=== PATIENT | male | born 1965 | race Caucasian/White ===

== ENCOUNTER 2016-12-26 11:28 | Emergency (ER) | payer MEDICARE ==
[~2016-12-26] VITALS: Ht 172.7 cm; Wt 95.0 kg
[2016-12-26] MEDS ORDERED: morphine INJ 4 MG/ML 1 ML SYRINGE IV PRN (11:40)
[2016-12-26] MEDS ORDERED: SODIUM CHLORIDE FLUSH 10 ML SYR IV PRN (11:40)
[2016-12-26] MEDS ORDERED: SODIUM CHLORIDE FLUSH 3 ML SYR IV PRN (11:40)
[2016-12-26 11:57] LABS: BASOPHILS % (AUTO) 1 % (0-2); EOSINOPHILS # (AUTO) 0.2 10^3uL; EOSINOPHILS % (AUTO) 2 % (0-4); LYMPHOCYTES # (AUTO) 1.5 X10^3; MEAN CORPUSCULAR HEMOGLOBIN 29.1 PG (26.0-34.0); MEAN CORPUSCULAR HGB CONC 35.1 g/dL (31.0-37.0); MEAN CORPUSCULAR VOLUME 83 FL (80-100); MEAN PLATELET VOLUME 10.5 FL (6.0-9.5); MONOCYTES % (AUTO) 10 % (3-11); NEUTROPHILS # (AUTO) 7.3 X10^3; NEUTROPHILS % (AUTO) 73 % (51-67); PLATELET COUNT 340 10^3uL (150-450); WHITE BLOOD COUNT 10.01 10^3uL (4.0-11.0)
[2016-12-26 12:01] LABS: ALBUMIN 4.6 g/dL (3.4-5.0); ALKALINE PHOSPHATASE 120 U/L (38-126); ANION GAP 15.4 MEQ/L (3-15); BUN/CREATININE RATIO 15 (10-20); CALCULATED IONIZED CALCIUM 3.7 mg/dL (3.8-4.6); CREATINE KINASE 108 U/L (55-170)
--- NOTE | 2016-12-26 12:12 | NUR ---
PATIENT CONTINUES TO DENY ANY DISCOMFORT, SOA, OR NAUSEA. SPO2 REMAINS AT 94% ON ROOM AIR.
--- NOTE | 2016-12-26 12:37 | NUR ---
PATIENT CONTINUES TO DENY DISCOMFORT, SOA, OR NAUSEA. SPO2 REMAINS 94% ON RM AIR.
[2016-12-26] MEDS ORDERED: meTOprolol TARTRATE 25 MG (LOPRESSOR) TABLET PO ONE (13:15)
[2016-12-26 13:43] VITALS: BP 122/84
--- NOTE | 2016-12-26 13:58 | NUR ---
PATIENT REPORT TO Magda CASILLAS, GRAVEL WEIGHER WHO NOW ASSUMES CARE OF PT.
[2016-12-26] MEDS: NITROGLYCERIN SUBLINGUAL 0.4 MG (NITROQUICK) TABLET SL PRN ×2 (22:45→22:47)
== END 2016-12-26 14:05 | disposition short-term general hospital (02) ==
LOC: ED 11:30
DX: R07.9 Chest pain, unspecified (principal); R55 Syncope and collapse
CPT/HCPCS: 36415; 71010; 80053; 82550; 82553; 83880; 84484; 85025; 85610; 85730; 93005; 99285; A9270; J7030; 93010; 96360

== ENCOUNTER → 2016-12-26 | Outpatient (CLI) | payer MEDICARE | LOC: EMS 11:20 | PROVIDERS: ATTEND Internal Medicine | DX: R55 Syncope and collapse (principal); R07.89 Other chest pain ==

== ENCOUNTER 2016-12-31 11:53 | Emergency (ER) | payer MEDICARE ==
[~2016-12-31] VITALS: Ht 172.7 cm; Wt 108.0 kg
[~2016-12-31 11:53] MED LIST changes: -ATN50T PO; -HYDR-33 PO; -SERT100T8 PO
--- OUTSIDE RECORDS SUMMARY | 2016-12-31 11:59 | XMS REPORT | Continuity of Care Document ---
Author Author [facility] Organization [facility] Address Unknown Phone Unavailable Care Team Providers Care Organ Builder Name Role Phone SAW, JESSICA Trinidad MD PCP [phone] Insurance Providers Payer Name Policy Number Subscriber Name Relationship Medicare A And B [id number] Jhoan Maldonado Jr 18 Self / Same As Patient Advance Directives Directive Response Recorded Date/Time Advanced Directives Yes 12/26/16 11:30am Type Durable Power of Storm Chaser 12/26/16 11:30am Type Living Will 12/26/16 11:30am Problems Active Problems Medical Problem Onset Date Status Chest pain 02/06/2013 Acute Decreased appetite Unknown Acute Dehydration Unknown Acute Syncope Unknown Acute Weakness Unknown Acute Medications Current Home Medications Medication Dose Units Route Directions Days/Qty Instructions Start Date Acetaminophen (Tylenol) 325 Mg 650 Mg ORAL Every 6 Hours as needed for Pain 30 03/28/15 Lisinopril/Hydrochlorothiazide 1 Each 1 Tab ORAL Daily In Am Omeprazole 20 Mg 1 Cap ORAL Qd -Bid 12/26/16 Aspirin 500 Mg 2 Tab ORAL As Needed as needed for Pain 12/26/16 Past Home Medications Medication Directions Ordered Status Lisinopril/Hydrochlorothiazide 1 Each Tablet, 1 Each Oral Daily 02/05/13 Discontinued Fenofibrate Nanocrystallized 145 Mg Tablet, 145 Mg Oral Daily 02/05/13 Discontinued Docusate Sodium 100 Mg Cap, 100 Mg Oral Twice A Day as needed for Constipation 03/28/15 Discontinued Social History Social History Problem Response Recorded Date/Time Onset Date Status Exposure to occupational hazards No 03/27/2015 5:38am Query Response Start Date Stop Date Smoking Status Never smoker Hospital Discharge Instructions Current inpatient/outpatient. Discharge instructions are currently unavailable. Plan of Care Prescriptions Functional Status No functional status results. Allergies, Adverse Reactions, Alerts Allergen Type Severity Reaction Status Last Updated Ibuprofen Adverse Reaction Unknown Elevated Blood Pressure Active 12/26/16 Immunizations Name Given Type Status Date Pneumonia Vaccine Received if Current 03/28/15 Historical Historical Vital Signs Acute Vital Signs Vital Response Date/Time Temperature (Fahrenheit) 98.4 12/26/2016 11:30am Pulse 111 bpm 12/26/2016 1:43pm Respirations 18 12/26/2016 1:43pm Results Laboratory Results Test Name Result Units Flags Reference Collection Date/Time Result Date/ Time Comments White Blood Count 10.01 10^3uL 4.0-11.0 12/26/2016 11:2412/26/2016 11:59am Red Blood Count 5.19 10^6uL 4.50-5.50 12/26/2016 11:12/26/2016 11: 59am Hemoglobin 15.1 g/dL 13.5-17.0 12/26/2016 11:12/26/2016 11:59am Hematocrit 43.00 % 39.00-50.00 12/26/2016 11:12/26/2016 11:59am Mean Corpuscular Volume 83 FL 80-100 12/26/2016 11:12/26/2016 11: 59am Mean Corpuscular Hemoglobin 29.1 PG 26.0-34.0 12/26/2016 11:2016 11:59am Mean Corpuscular Hemoglobin Concent 35.1 g/dL 31.0-37.0 12/26/2016 11: 12/26/2016 11:59am Red Cell Distribution Width 12.2 % 11.8-15.6 12/26/2016 11:242016 11:59am Platelet Count 340 10^3uL 150-450 12/26/2016 11:2412/26/2016 11: 59am Mean Platelet Volume 10.5 FL H 6.0-9.5 12/26/2016 11:12/26/2016 11: 59am Neutrophils (%) (Auto) 73 % H 51-67 12/26/2016 11:12/26/2016 11: 59am Lymphocytes (%) (Auto) 15 % L 20-46 12/26/2016 11:12/26/2016 11: 59am Monocytes (%) (Auto) 10 % 3-11 12/26/2016 11:12/26/2016 11:59am Eosinophils (%) (Auto) 2 % 0-4 12/26/2016 11:12/26/2016 11:59am Basophils (%) (Auto) 1 % 0-2 12/26/2016 11:12/26/2016 11:59am Neutrophils # (Auto) 7.3 X10^3 12/26/2016 11:12/26/2016 11:59am Lymphocytes # (Auto) 1.5 X10^3 12/26/2016 11:12/26/2016 11:59am Monocytes # (Auto) 1.0 X10^3 12/26/2016 11:12/26/2016 11:59am Eosinophils # (Auto) 0.2 10^3uL 12/26/2016 11:12/26/2016 11: 59am Basophils # (Auto) 0.1 10^3uL 12/26/2016 11:12/26/2016 11:59am Prothrombin Time 11.1 SEC 10.0-12.5 12/26/2016 11:12/26/2016 12: 24pm Prothromb Time International Ratio 1.0 0.8-1.4 12/26/2016 11: 12:24pm Activated Partial Thromboplast Time 22.3 SEC L 26.3-36.8 12/26/2016 11: 12/26/2016 12:24pm Sodium Level 137 mmol/L 135-150 12/26/2016 11:12/26/2016 12:16pm Potassium Level 3.8 mmol/L 3.5-5.1 12/26/2016 11:12/26/2016 12: 16pm Chloride Level 99 mmol/L 98-108 12/26/2016 11:12/26/2016 12:16pm Carbon Dioxide Level 26 mmol/L 22-12/26/2016 11:12/26/2016 12: 16pm Anion Gap 15.4 MEQ/L H 3-15 12/26/2016 11:12/26/2016 12:16pm Blood Urea Nitrogen 17 mg/dL 7-18 12/26/2016 11:12/26/2016 12: 16pm Creatinine 1.10 mg/dL 0.8-1.5 12/26/2016 11:12/26/2016 12:16pm BUN/Creatinine Ratio 15 10-12/26/2016 11:12/26/2016 12:16pm Estimat Glomerular Filtration Rate 85.1 12/26/2016 11:2016 12:16pm Estimated GFR (Non- 70.3 12/26/2016 11:2016 12:16pm Glucose Level 96 mg/dL 70-110 12/26/2016 11:12/26/2016 12:16pm Calculated Osmolality 267 mosm/L L 280-300 12/26/2016 11:2016 12:16pm Calcium Level 9.1 mg/dL 8.8-10.8 12/26/2016 11:12/26/2016 12:16pm Calcium/Ionized Calcium Ratio 3.7 mg/dL L 3.8-4.6 12/26/2016 11: 12:16pm Total Bilirubin 0.8 mg/dL 0.1-1.0 12/26/2016 11:12/26/2016 12: 16pm Alkaline Phosphatase 120 U/L 38-126 12/26/2016 11:12/26/2016 12: 16pm Aspartate Amino Transf (AST/SGOT) 29 U/L 15-37 12/26/2016 11:12/26 12:16pm Alanine Aminotransferase (ALT/SGPT) 33 U/L 30-65 12/26/2016 11: 12:16pm Total Creatine Kinase 108 U/L 55-170 12/26/2016 11:12/26/2016 12: 16pm Creatine Kinase MB 1.6 ng/mL 0.0-6.0 12/26/2016 11:2412/26/2016 12: 16pm Troponin I < 0.012 ng/mL 0.010-0.080 12/26/2016 11:24am 12/26/2016 12: 16pm XI-Yez-Q-Type Natriuretic Peptide 15 pg/mL 0-125 12/26/2016 11:24am 12:16pm <300 ng/mL - HF unlikely Age <50 years, NT-proBNP >450 pg/mL - HF Likely Age 50-75 yrs, NT-proBNP >900 pg/mL - HF Likely Age >75 yrs, NT-proBNP >1800 - HF likely Total Protein 8.0 g/dL 6.4-8.5 12/26/2016 11:24am 12/26/2016 12:16pm Albumin 4.6 g/dL 3.4-5.0 12/26/2016 11:24am 12/26/2016 12:16pm Albumin/Globulin Ratio 1.352 1.1-1.8 12/26/2016 11:24am 12/26/2016 12 :16pm Procedures No known history of procedures. Encounters Encounter Location Arrival/Admit Date Discharge/Depart Date Attending Provider Registered Clinic [facility] 12/26/16 1:55pm José Henry MD Departed Emergency Room [facility] 12/26/16 11:30am 12/26/16 2:05pm ADOLFO COHN MD
[2016-12-31] MEDS ORDERED: NITROGLYCERIN 2% OINTMENT (NITRO-BID) 1 GM UNIT DOSE PACKET TOP PRN (12:05)
[2016-12-31] MEDS ORDERED: NITROGLYCERIN SUBLINGUAL 0.4 MG (NITROQUICK) TABLET SL PRN (12:05)
[2016-12-31] MEDS ORDERED: morphine INJ 2 MG/ML 1 ML SYRINGE IV PRN (12:05)
[2016-12-31] MEDS ORDERED: ATN50T PO (12:07)
[2016-12-31] MEDS ORDERED: HYDR-33 PO (12:07)
[2016-12-31] MEDS ORDERED: SERT100T8 PO (12:07)
--- NOTE | 2016-12-31 12:08 | NUR ---
states to this nurse for no more nitro at this time.
[2016-12-31 12:15] LABS: BASOPHILS % (AUTO) 0 % (0-2); EOSINOPHILS % (AUTO) 0 % (0-4); LYMPHOCYTES # (AUTO) 1.3 X10^3; MEAN CORPUSCULAR HEMOGLOBIN 28.8 PG (26.0-34.0); MEAN CORPUSCULAR HGB CONC 34.4 g/dL (31.0-37.0); MEAN CORPUSCULAR VOLUME 84 FL (80-100); MONOCYTES % (AUTO) 10 % (3-11); NEUTROPHILS # (AUTO) 7.7 X10^3; NEUTROPHILS % (AUTO) 76 % (51-67); PLATELET COUNT 425 10^3uL (150-450); WHITE BLOOD COUNT 10.05 10^3uL (4.0-11.0)
--- NOTE | 2016-12-31 12:17 | NUR ---
BP directly prior to nitro / via EMS
--- NOTE | 2016-12-31 12:25 | Diagnostic Imaging Report ---
INDICATION: Weakness. TECHNIQUE: A frontal chest was obtained at 1210 hours. COMPARISON: 12/26/2016. FINDINGS: The study is limited by the very poor inspiration. The heart is normal in size. The lungs appear grossly clear. There is no pneumothorax or pleural fluid. IMPRESSION: Very poor inspiration with no acute process in the chest. Dictated by: Dictated on workstation # [id number]
[2016-12-31 12:27] LABS: ALBUMIN 5.1 g/dL (3.4-5.0); ALKALINE PHOSPHATASE 122 U/L (38-126); ANION GAP 21.3 MEQ/L (3-15); BUN/CREATININE RATIO 17 (10-20); CALCULATED IONIZED CALCIUM 3.6 mg/dL (3.8-4.6); CREATINE KINASE 205 U/L (55-170)
--- NOTE | 2016-12-31 12:27 | NUR ---
MD states to give pt some morphine. 2mg given at this time for chest pain 05/14.
--- NOTE | 2016-12-31 12:47 | NUR ---
Pt resting with eyes closed and hard to arouse from resting. Pt alert and oriented x3 upon waking up.
--- NOTE | 2016-12-31 12:59 | NUR ---
MD states no more fluids once bolus is done.
[2016-12-31 16:10] VITALS: BP 106/68
== END 2016-12-31 16:11 | disposition home or self-care (01) ==
LOC: EDUNIT# 11:53 → ED 11:55
DX: N28.9 Disorder of kidney and ureter, unspecified (principal); R07.89 Other chest pain
CPT/HCPCS: 36415; 71010; 80053; 82550; 82553; 82565; 84484; 85025; 85610; 85730; 93005; 96361; 96374; 99285; J2270; J7030; 93010

== ENCOUNTER → 2016-12-31 | Outpatient (CLI) | payer MEDICARE ==
[~2016-12-31] MED LIST: AC325T PO; ASPI500T15 PO; ATN50T PO; DOCU-243 PO; FENO145T20 PO; HYDR-33 PO; LISI1TAB10 PO; OMEP20CA12 PO; SERT100T8 PO
== END ==
LOC: EMS 11:50
PROVIDERS: ATTEND Emergency Medicine
DX: R07.89 Other chest pain (principal)

== ENCOUNTER 2017-01-01 08:06 | Emergency (ER) | payer MEDICARE ==
[~2017-01-01] VITALS: Ht 172.7 cm; Wt 108.0 kg
--- NOTE | 2017-01-01 08:10 | NUR ---
Patient is admitted to room 8 after being brought to ER by EMS with C/o of shakiness and chest pain. VS were WNL. SO was present in the room.
[2017-01-01] MEDS ORDERED: SODIUM CHLORIDE FLUSH 10 ML SYR IV PRN (08:45)
[2017-01-01 09:13] LABS: BASOPHILS % (AUTO) 1 % (0-2); EOSINOPHILS # (AUTO) 0.1 10^3uL; EOSINOPHILS % (AUTO) 1 % (0-4); LYMPHOCYTES # (AUTO) 1.1 X10^3; MEAN CORPUSCULAR HEMOGLOBIN 29.6 PG (26.0-34.0); MEAN CORPUSCULAR HGB CONC 34.6 g/dL (31.0-37.0); MEAN CORPUSCULAR VOLUME 86 FL (80-100); MEAN PLATELET VOLUME 10.4 FL (6.0-9.5); MONOCYTES # (AUTO) 1.1 X10^3; MONOCYTES % (AUTO) 11 % (3-11); NEUTROPHILS # (AUTO) 7.5 X10^3; NEUTROPHILS % (AUTO) 76 % (51-67); PLATELET COUNT 335 10^3uL (150-450); WHITE BLOOD COUNT 9.88 10^3uL (4.0-11.0)
--- NOTE | 2017-01-01 09:13 | NUR ---
FIRST IV ATTEMPT UNSUCCESSFUL & PT STARTING TO BREATH MORE RAPIDLY & SHALLOW STATING HE FEEL DIZZY. COLD WET CLOTH GIVEN & PT INSTRUCTED VERBALLY TO TRY TO BREATHE MORE SLOWLY WITH AT BEDSIDE. CL
--- NOTE | 2017-01-01 09:17 | NUR ---
patient c/o nausea and increased substernal mpain. Pain rated at 9/10 currently. Doctor notified.
[2017-01-01 09:20] LABS: ALBUMIN 4.4 g/dL (3.4-5.0); ANION GAP 12.2 MEQ/L (3-15); CALCULATED IONIZED CALCIUM 3.6 mg/dL (3.8-4.6); TOTAL PROTEIN 7.7 g/dL (6.4-8.5)
[2017-01-01 09:23] LABS: BILIRUBIN,URINE Negative (Negative); CLARITY,URINE Clear; COLOR,URINE Yellow; GLUCOSE, URINE (UA) Negative (Negative); LEUKOCYTE ESTERASE ,URINE Negative (Negative); PH,URINE 5.5 (5.0 - 8.0); UROBILINOGEN,URINE 0.2 mg/dL (0.2-1.0)
[2017-01-01] MEDS ORDERED: DIAZEPAM 10 MG/2 ML (VALIUM) SYRINGE IV ONE (09:50)
--- NOTE | 2017-01-01 09:54 | NUR ---
PT CONT TO STATE HE FEELS SHAKEY & PT STATES "THEY WANTED TO PUT A CATHETER OR MONITOR OR SOMETHING IN MY HEART AT [place]". DR ARROYO NOTIFIED. CL
--- NOTE | 2017-01-01 10:03 | NUR ---
[facility] HELICOPTER PILOT INSTRUCTOR IN W/PT & PT TO SEE IF THERE IS NEED FOR ASSISTANCE IN THE HOME. CL
--- NOTE | 2017-01-01 10:07 | NUR ---
After 5 attempts by two different RNs, IV access has not been completed.
--- NOTE | 2017-01-01 10:41 | NUR ---
Visited with Pt. and his . Pt. expressed not handling his new health concerns well. He expressed worrying a lot about dying. Pt. and have a Litigation Examiner Bright Blake who they visit with. SW encouraged Pt. to discuss his fears with his cleaning matron. Pt. and do not have any children and he has one brother but they are not on speaking terms. Pt. reports he does take medication for anxiety. Pt. and reported they use the food bank, go to [employer] and [employer] and they have a vision card. SW discussed having home health services ordered to come in and evaluate Pt. at home. SW stated that way they can help monitor his health needs and he can contact them when he feels like he needs help and they can evaluate him and help provide guidance. Pt. stated she has had home health services through [facility] before for about a year due to her anxiety but she is better now. Pt. was open to having services through [facility]. Pt. discussed utilizing the [facility] for transportation and meals if needed. Will contact the [facility] transportation upon discharge for Pt. and . During SW visit Pt. pastor Novoa came and visited with Pt. With Pt. verbal permission SW discussed with the Litigation Examiner Pt. fear of dying and encouraging Pt. to talk to Pt. about his fears. Litigation Examiner agreed. Pt. prayed with the family and offered any assistance as needed.
--- NOTE | 2017-01-01 10:57 | NUR ---
[facility] pt. cl
[2017-01-01 11:02] VITALS: BP 105/70
== END 2017-01-01 10:57 | disposition home or self-care (01) ==
LOC: EDUNIT# 08:06 → ED 08:08
DX: F41.1 Generalized anxiety disorder (principal); I10 Essential (primary) hypertension; R07.89 Other chest pain
CPT/HCPCS: 36415; 51798; 80053; 81003; 85025; 96372; 99285; G0480; J3360; 80329; 99283

== ENCOUNTER → 2017-01-01 | Outpatient (CLI) | payer MEDICARE ==
[~2017-01-01] MED LIST changes: +ATN50T PO; +HYDR-33 PO; +SERT100T8 PO
== END ==
LOC: EMS 08:00
PROVIDERS: ATTEND Emergency Medicine
DX: R53.1 Weakness (principal); R07.89 Other chest pain

== ENCOUNTER 2017-01-02 02:34 | Emergency (ER) | payer MEDICARE ==
[~2017-01-02] VITALS: Ht 172.7 cm; Wt 104.5 kg
[~2017-01-02 02:34] MED LIST changes: -LORA0.5T PO
--- OUTSIDE RECORDS SUMMARY | 2017-01-02 02:38 | XMS REPORT | Continuity of Care Document ---
Author Author [facility] Address Unknown Phone Unavailable Care Team Providers Care Hog Trader Name Role Phone SAW, JESSICA Trinidad MD PCP [phone] Insurance Providers Payer Name Policy Number Subscriber Name Relationship Medicare A And B [id number] Jhoan Maldonado Jr 18 Self / Same As Patient Advance Directives Directive Response Recorded Date/Time Advanced Directives Yes 01/01/17 8:08am Type Durable Power of [employer] Coremaker 01/01/17 8:08am Type Living Will 01/01/17 8:08am Chief Complaint and Reason for Visit Chief Complaint GI Complaint Reason for Visit Anxiety Problems Active Problems Medical Problem Onset Date Status Anxiety Unknown Acute Chest pain 02/06/2013 Acute Decreased appetite Unknown Acute Dehydration Unknown Acute Renal insufficiency Unknown Acute Syncope Unknown Acute Weakness Unknown [...] As Needed as needed for Pain 12/26/16 Atenolol (Tenormin) 50 Mg 50 Mg ORAL Daily 60 12/31/16 Sertraline Hcl 100 Mg 100 Mg ORAL Daily 30 12/31/16 Hydrocodone/Acetaminophen 6 Tabs/Btl 5 Mg ORAL As Needed 180 12/31/16 Past Home Medications Medication Directions Ordered Status [...] Smoking Status Never smoker Hospital Discharge Instructions No hospital discharge instructions. Plan of Care Discharge Date 01/01/17 10:57am Disposition 01 HOME OR SELF-CARE Condition at Discharge Stable Instructions/Education Provided Anxiety, Adult (DC) Prescriptions See Medication Section Referrals JESSICA SPRING MD - Additional Instructions/Education Some of your test results may not be complete prior to your leaving the Emergency Department. The Emergency Department is not authorized to give test results over the phone. Please contact the doctor's office listed in this packet of information for your final results. Follow up with your primary care physician or return to the Emergency Department for worsening or worrisome symptoms. * Emergency Department phone number: [phone], x [phone]* MEDICAL RECORD If you need copies of your X-rays, call [phone]. If you need copies of your medical record, including lab results, a signed authorization for release of records will be required. A telephone call for release of Health Information is not allowed. BILLING Billing can sometimes be confusing and frustrating. To help avoid confusion in the future, please take a moment to acquaint yourself with the billing parties for services. SERVICE BILLING [facility] Emergency Room Services [facility] Physician Services [facility] X-rays [facility] Patients will receive bills for services from the appropriate provider. If you have any questions about your [facility] bill, our staff will be happy to assist you. Please call [phone], and ask for the billing department. THANK YOU for choosing [facility] as your emergency care provider! Care Plan and Goals ~~Discharge Care Plan~~ Problem: Chest, epigastric or chest wall pain Goal: Decreased pain Instructions: Take medication(s) as directed. Follow home discharge instructions. Follow up with primary care physician or fish hatchery superintendent as directed. Functional Status No functional status results. Allergies, Adverse Reactions, Alerts Allergen Type Severity Reaction Status Last Updated Ibuprofen Adverse Reaction Unknown Elevated Blood Pressure Active 12/31/16 Immunizations Name Given Type Status Date Pneumonia Vaccine Received if Current 03/28/15 Historical Historical Vital Signs Acute Vital Signs Vital Response Date/Time Temperature (Fahrenheit) 98.5 01/01/2017 11:02am Pulse 70 bpm 01/01/2017 11:02am Respirations 16 01/01/2017 11:02am Height 5 ft 8 in Weight 238 lb Body Mass Index 36.0 kg/m^2 Results Laboratory Results Test Name Result Units Flags Reference Collection Date/Time Result Date/ Time Comments White Blood Count 10.01 10^3uL 4.0-11.0 12/26/2016 11:24am 12/26/2016 11:59am Red Blood Count 5.19 10^6uL 4.50-5.50 12/26/2016 11:24am 12/26/2016 11: 59am Hemoglobin 15.1 g/dL 13.5-17.0 12/26/2016 11:24am 12/26/2016 11:59am Hematocrit 43.00 % 39.00-50.00 12/26/2016 11:2412/26/2016 11:59am Mean Corpuscular Volume 83 FL 80-100 12/26/2016 11:24am 12/26/2016 11: 59am Mean Corpuscular Hemoglobin 29.1 PG 26.0-34.0 12/26/2016 11:24am 2016 11:59am Mean Corpuscular Hemoglobin Concent 35.1 g/dL 31.0-37.0 12/26/2016 11: 24am 12/26/2016 11:59am Red Cell Distribution Width 12.2 % 11.8-15.6 12/26/2016 11:2016 11:59am Platelet Count 340 10^3uL 150-450 12/26/2016 11:12/26/2016 11: 59am Mean Platelet Volume 10.5 FL [...] 11:59am Eosinophils # (Auto) 0.2 10^3uL 12/26/2016 11:2412/26/2016 11: 59am Basophils # (Auto) 0.1 10^3uL [...] 11:12/26/2016 12:16pm Carbon Dioxide Level 26 mmol/L 22-29 12/26/2016 11:12/26/2016 12: 16pm Anion Gap 15.4 MEQ/L [...] Alanine Aminotransferase (ALT/SGPT) 33 U/L 30-65 12/26/2016 11:24am 12:16pm Total Creatine Kinase 108 U/L 55-170 12/26/2016 11:24am 12/26/2016 12: 16pm Creatine Kinase MB 1.6 ng/mL 0.0-6.0 12/26/2016 11:24am 12/26/2016 12: 16pm Troponin I < 0.012 ng/mL 0.010-0.080 12/26/2016 11:24am 12/26/2016 12: 16pm HS-Vbg-G-Type Natriuretic Peptide 15 pg/mL 0-125 12/26/2016 11:24am [...] 1.352 1.1-1.8 12/26/2016 11:24am 12/26/2016 12 :16pm Pending Laboratory Results Test Name Collection Date/Time Procedures Procedure Status Date Provider(s) ROUTINE VENIPUNCTURE Completed 12/26/16 CHEST X-RAY 1 VIEW FRONTAL Completed 12/26/16 COMPREHEN METABOLIC PANEL Completed 12/26/16 ASSAY OF CK (CPK) Completed 12/26/16 CREATINE MB FRACTION Completed 12/26/16 ASSAY OF NATRIURETIC PEPTIDE Completed 12/26/16 ASSAY OF TROPONIN QUANT Completed 12/26/16 COMPLETE CBC W/AUTO DIFF WBC Completed 12/26/16 PROTHROMBIN TIME Completed 12/26/16 THROMBOPLASTIN TIME PARTIAL Completed 12/26/16 ELECTROCARDIOGRAM TRACING Completed 12/26/16 EMERGENCY DEPT VISIT Completed 12/26/16 Completed 12/26/16 Completed 12/26/16 Encounters Encounter Location Arrival/Admit Date Discharge/Depart Date Attending Provider Departed Emergency Room [facility] 01/01/17 8:08am 01/01/17 10:57am JOSÉ ARROYO MD Registered Clinic [facility] 01/01/17 8:00am JOSÉ ARROYO MD Departed Emergency Room [facility] 12/31/16 11:55am 12/31/16 4:11pm JOSÉ ARROYO MD Registered Clinic [facility] 12/31/16 11:50am JOSÉ ARROYO MD Registered [facility] 12/26/16 1:55pm José Henry MD Departed Emergency Room [facility] 12/26/16 11:30am 12/26/16 2:05pm ADOLFO COHN MD Recent Diagnosis
--- NOTE | 2017-01-02 02:53 | NUR ---
Patient stated, "I just feel out of it, like I'm fading in and out"
[2017-01-02] MEDS ORDERED: LORazepam 2 MG/ML (ATIVAN) 1 ML VIAL IV ONE (03:35)
--- NOTE | 2017-01-02 03:42 | NUR ---
ORTHOSTATICS OBTAINED, PATIENT VERY SYMPTOMATIC WITH STANDING, BP DROPPED AND HAD SINUS TACHACARDIA FOR A FEW SECONDS. REPORTED TO DR. PASCUAL. ORDERS GIVEN FOR NORMAL SALINE BOLUS PER IV AND 1MG ATIVAN IV. ORDERS READ BACK AND CONFIRMED.
[2017-01-02] MEDS ORDERED: SODIUM CHLORIDE FLUSH 3 ML SYR IV ONE (03:50)
[2017-01-02] MEDS ORDERED: SODIUM CHLORIDE FLUSH 10 ML SYR IV PRN (03:50)
[2017-01-02 03:53] LABS: BASOPHILS % (AUTO) 1 % (0-2); EOSINOPHILS # (AUTO) 0.1 10^3uL; EOSINOPHILS % (AUTO) 1 % (0-4); LYMPHOCYTES # (AUTO) 1.6 X10^3; MEAN CORPUSCULAR HEMOGLOBIN 29.6 PG (26.0-34.0); MEAN CORPUSCULAR HGB CONC 34.7 g/dL (31.0-37.0); MEAN CORPUSCULAR VOLUME 85 FL (80-100); MEAN PLATELET VOLUME 10.5 FL (6.0-9.5); MONOCYTES # (AUTO) 1.2 X10^3; MONOCYTES % (AUTO) 15 % (3-11); NEUTROPHILS # (AUTO) 5.4 X10^3; NEUTROPHILS % (AUTO) 64 % (51-67); PLATELET COUNT 319 10^3uL (150-450)
[2017-01-02 04:00] LABS: ALBUMIN 4.6 g/dL (3.4-5.0); ALKALINE PHOSPHATASE 108 U/L (38-126); ANION GAP 14.2 MEQ/L (3-15); BUN/CREATININE RATIO 30 (10-20); CALCULATED IONIZED CALCIUM 4.1 mg/dL (3.8-4.6); CREATINE KINASE 109 U/L (55-170); TOTAL PROTEIN 7.6 g/dL (6.4-8.5)
[2017-01-02] MEDS ORDERED: ED- LORAZEPAM 0.5 MG (ATIVAN) 6 TABLETS/BTL PO ONE (04:30)
--- NOTE | 2017-01-02 04:35 | NUR ---
PATIENT ALERT AND ORIENTED, TALKING , CARRING ON A CONVERSATION. BEFORE PATIENT NOT VERY TALKATIVE, WOULD ANSWER QUESTIONS AND THAT WAS ALL. HE REPORTS "I'M FEELING much better." Patient smiling. Removed oxygen to see if he is able to maintain on room air.
--- NOTE | 2017-01-02 04:53 | NUR ---
oxygen removed at 0435, patient maintaining 02sats at 94-96% on RA. Removed awake overnight monitor strips per Dr. Ornelas.
[2017-01-02 05:40] LABS: BILIRUBIN,URINE Negative (Negative); CLARITY,URINE Clear; COLOR,URINE Yellow; GLUCOSE, URINE (UA) Negative (Negative); LEUKOCYTE ESTERASE ,URINE Negative (Negative); UROBILINOGEN,URINE 0.2 mg/dL (0.2-1.0)
[2017-01-02 05:50] LABS: AMPHETAMINE SCREEN, URINE Negative (Negative); CANNABINOID SCREEN, URINE Negative (Negative); METHAMPHETAMINE SCREEN URINE S NEGATIVE (NEGATIVE); OPIATE SCREEN URINE Positive (Negative)
[2017-01-02 05:51] LABS: PROPOXYPHENE STAT NEGATIVE (NEGATIVE)
[2017-01-02 06:36] VITALS: BP 103/61
--- NOTE | 2017-01-02 06:59 | Diagnostic Imaging Report ---
INDICATION: Chest pain. TECHNIQUE: Single-view chest 3:06 AM. CORRELATION STUDY: 12/31/2016. FINDINGS: Overall examination somewhat limited and suboptimal along with limited depth of inspiration. Given this, heart size, mediastinum, vasculature overall within normal limits and relatively stable. Mild basilar atelectasis left greater than right. No definitive infiltrate. IMPRESSION: Limited portable chest demonstrates no findings to suggest acute abnormality or significant interval change. Dictated by: Dictated on workstation # [id number]
[2017-01-03] MEDS ORDERED: ATN50T PO (09:09)
[2017-01-03] MEDS ORDERED: LORA0.5T PO (10:12)
== END 2017-01-02 06:38 | disposition home or self-care (01) ==
LOC: ED 02:36
DX: F41.8 Other specified anxiety disorders (principal); R07.89 Other chest pain; I10 Essential (primary) hypertension
CPT/HCPCS: 36415; 71010; 80053; 80307; 81003; 82550; 82553; 83880; 84443; 84484; 85025; 86140; 93005; 96361; 96374; 99285; A9270; G0480; J2060; J7030; 80320; 93010; 99284

== ENCOUNTER → 2017-01-02 | Outpatient (CLI) | payer MEDICARE ==
[~2017-01-02] MED LIST changes: +LORA0.5T PO
== END ==
LOC: EMS 02:29
PROVIDERS: ATTEND Family Medicine
DX: R56.9 Unspecified convulsions (principal); M79.602 Pain in left arm; M79.601 Pain in right arm

== ENCOUNTER 2017-01-03 08:52 | Emergency (ER) | payer MEDICARE ==
[~2017-01-03] VITALS: Ht 172.7 cm; Wt 109.0 kg
[~2017-01-03 08:52] MED LIST changes: -LORA0.5T PO
[2017-01-03] MEDS ORDERED: LORazepam 2 MG/ML (ATIVAN) 1 ML VIAL IV ONE (09:05)
[2017-01-03] MEDS ORDERED: ATN50T PO (09:09)
[2017-01-03 09:15] LABS: BASOPHILS % (AUTO) 1 % (0-2); EOSINOPHILS # (AUTO) 0.1 10^3uL; EOSINOPHILS % (AUTO) 1 % (0-4); LYMPHOCYTES # (AUTO) 1.3 X10^3; MEAN CORPUSCULAR HEMOGLOBIN 29.1 PG (26.0-34.0); MEAN CORPUSCULAR HGB CONC 35.1 g/dL (31.0-37.0); MEAN CORPUSCULAR VOLUME 83 FL (80-100); MEAN PLATELET VOLUME 10.3 FL (6.0-9.5); MONOCYTES # (AUTO) 1.2 X10^3; MONOCYTES % (AUTO) 14 % (3-11); NEUTROPHILS # (AUTO) 6.1 X10^3; NEUTROPHILS % (AUTO) 69 % (51-67); PLATELET COUNT 367 10^3uL (150-450); WHITE BLOOD COUNT 8.74 10^3uL (4.0-11.0)
--- NOTE | 2017-01-03 09:20 | NUR ---
pt does not remember getting ativan prior to discharging from last visit, states controls his meds. is not present because she cannot drive
[2017-01-03 09:23] LABS: CLARITY,URINE Clear; GLUCOSE, URINE (UA) Negative (Negative); LEUKOCYTE ESTERASE ,URINE Negative (Negative)
[2017-01-03 09:27] LABS: BILIRUBIN,URINE 1+ (Negative); COLOR,URINE Dark Yellow
[2017-01-03 09:34] LABS: AMPHETAMINE SCREEN, URINE Negative (Negative); CANNABINOID SCREEN, URINE Negative (Negative); METHAMPHETAMINE SCREEN URINE S NEGATIVE (NEGATIVE); OPIATE SCREEN URINE Positive (Negative); PROPOXYPHENE STAT NEGATIVE (NEGATIVE)
[2017-01-03 09:35] LABS: ALBUMIN 4.7 g/dL (3.4-5.0); ALKALINE PHOSPHATASE 113 U/L (38-126); ANION GAP 18.4 MEQ/L (3-15); BUN/CREATININE RATIO 25 (10-20); CREATINE KINASE 66 U/L (55-170); TOTAL PROTEIN 7.8 g/dL (6.4-8.5)
[2017-01-03] MEDS ORDERED: LORA0.5T PO (10:12)
[2017-01-03 10:47] VITALS: BP 150/74
== END 2017-01-03 10:35 | disposition home or self-care (01) ==
LOC: EDUNIT# 08:52 → ED 08:53
DX: F41.1 Generalized anxiety disorder (principal); Z79.899 Other long term (current) drug therapy
CPT/HCPCS: 36415; 80053; 80307; 81003; 82550; 82553; 83880; 84484; 85025; 85610; 86140; 93005; 96374; 99285; J2060; 93010; 99283

== ENCOUNTER → 2017-01-03 | Outpatient (CLI) | payer MEDICARE ==
[~2017-01-03] MED LIST changes: +LORA0.5T PO
== END ==
LOC: EMS 08:52
PROVIDERS: ATTEND Family Medicine
DX: R07.89 Other chest pain (principal); R06.02 Shortness of breath

== ENCOUNTER 2017-02-25 22:00 | Emergency (ER) | payer MEDICARE ==
[~2017-02-25] VITALS: Ht 172.7 cm; Wt 95.0 kg
--- NOTE | 2017-02-25 22:10 | NUR ---
Pt presents to ER via EMS with c/o geralized midline abdominal pain, epigastric pain, left side rib pain and chest pain. Pt rates pain is "a little" maybe a 3/10. Pt greets all the staff warmly, announces he's back. Does not appear to be in discomfort upon admittance. Pt is tachycardic. EKG obtained. Pt reports not taking any medications except Ativan now. No other concerns presented. IV site obtained by EMS, 20G Left forearm. Admitted to ER room 7.
[2017-02-25] MEDS ORDERED: NITROGLYCERIN SUBLINGUAL 0.4 MG (NITROQUICK) TABLET SL PRN (22:45)
[2017-02-25] MEDS ORDERED: HYDROmorphone 1 MG/ML (DILAUDID) SYRINGE IV ONE (23:05)
[2017-02-25 23:11] LABS: BASOPHILS % (AUTO) 1 % (0-2); EOSINOPHILS # (AUTO) 0.1 10^3uL; EOSINOPHILS % (AUTO) 1 % (0-4); LYMPHOCYTES # (AUTO) 1.6 X10^3; MEAN CORPUSCULAR HEMOGLOBIN 29.2 PG (26.0-34.0); MEAN CORPUSCULAR HGB CONC 34.4 g/dL (31.0-37.0); MEAN CORPUSCULAR VOLUME 85 FL (80-100); MEAN PLATELET VOLUME 10.8 FL (6.0-9.5); MONOCYTES # (AUTO) 1.3 X10^3; MONOCYTES % (AUTO) 13 % (3-11); NEUTROPHILS # (AUTO) 6.8 X10^3; NEUTROPHILS % (AUTO) 70 % (51-67); PLATELET COUNT 289 10^3uL (150-450); WHITE BLOOD COUNT 9.73 10^3uL (4.0-11.0)
[2017-02-25 23:15] LABS: ALBUMIN 4.6 g/dL (3.4-5.0); ANION GAP 15.1 MEQ/L (3-15); TOTAL PROTEIN 8.2 g/dL (6.4-8.5)
--- NOTE | 2017-02-25 23:35 | NUR ---
Pt confirmed the only medication he presently takes is Lorazepam. No BP medications or GI meds.
--- NOTE | 2017-02-26 00:15 | NUR ---
Reminded pt that we need a urine specimen. Pt stated his understanding. IVF bolus complete. Urinal provided for pt.
[2017-02-26 00:23] LABS: BILIRUBIN,URINE Negative (Negative); CLARITY,URINE Clear; COLOR,URINE Yellow; GLUCOSE, URINE (UA) Negative (Negative); LEUKOCYTE ESTERASE ,URINE Negative (Negative); PH,URINE 5.5 (5.0 - 8.0)
[2017-02-26] MEDS ORDERED: HYDROmorphone 1 MG/ML (DILAUDID) SYRINGE IV ONE (00:30)
[2017-02-26] MEDS ORDERED: FAMOTIDINE 20 MG (PEPCID) TABLET PO ONE (02:00)
--- NOTE | 2017-02-26 02:10 | NUR ---
Pt dismissed to home with instructions. Pt stated his understanding. Denies other needs and no other questions. Pt left ambulatory. IV site discontinued.
[2017-02-26 02:26] VITALS: BP 118/93
--- NOTE | 2017-02-26 08:28 | Diagnostic Imaging Report ---
PROCEDURE: CT abdomen and pelvis with contrast. TECHNIQUE: Multiple contiguous axial images were obtained through the abdomen and pelvis after administration of intravenous contrast. INDICATION: Pain. FINDINGS: Some partial atelectasis of the left lower lobe. No basilar pleural fluid. The liver, gallbladder and bile ducts appeared unremarkable. The pancreas and peripancreatic fat normal. There is no adrenal mass and the nonfocal spleen is normal in size. There is mild elevation of the left hemidiaphragm. There is no hydronephrosis. The kidneys appeared normal. There is no bowel, biliary or urinary tract obstruction. There is no mesenteric or retroperitoneal lymphadenopathy. No pathological fecal loading. No small or large bowel wall thickening and no perienteric or pericolonic edema. There was no focal inflammatory process. No mass. IMPRESSION: Unremarkable, pelvic CT aside from elevated left diaphragm and left basilar partial atelectasis. Dictated by: Dictated on workstation # [id number]
== END 2017-02-26 02:10 | disposition home or self-care (01) ==
LOC: ED 22:01
DX: R10.84 Generalized abdominal pain (principal); R10.816 Epigastric abdominal tenderness
CPT/HCPCS: 36415; 74177; 80053; 81003; 83690; 84484; 85025; 96361; 96374; 96376; 99284; A9270; J1170; J7030; Q9967; 93010

== ENCOUNTER → 2017-02-25 | Outpatient (CLI) | payer MEDICARE ==
[~2017-02-25] MED LIST changes: +LORA0.5T PO
== END ==
LOC: EMS 21:56
PROVIDERS: ATTEND Emergency Medicine
DX: R07.89 Other chest pain (principal); F41.1 Generalized anxiety disorder